=== PATIENT | male | born 1985 | race Caucasian/White ===

== ENCOUNTER → 2021-09-18 | Outpatient (CLI) | payer BC ==
[2021-09-18 08:26] LABS: BASOPHILS % 0.2 % (0.0-1.0); EOSINOPHILS # (AUTO) 0.1 (0.0-0.4); EOSINOPHILS % 1.1 % (0.0-6.0); HEMATOCRIT 45.5 % (38.2-49.6); HEMOGLOBIN 15.4 g/dL (14.0-18.0); LYMPHOCYTES # (AUTO) 1.2 (1.0-3.2); LYMPHOCYTES % 26.6 % (18.0-39.1); MEAN CORPUSCULAR HEMOGLOBIN 30.6 pg (28-32); MEAN CORPUSCULAR HGB CONC 33.8 g/dL (31-35); MEAN CORPUSCULAR VOLUME 90.5 fL (81-99); MONOCYTES # (AUTO) 0.3 (0.2-0.8); MONOCYTES % 6.4 % (4.4-11.3); NEUTROPHILS # (AUTO) 3.1 (2.1-6.9); NEUTROPHILS % 65.5 % (38.7-80.0); PLATELET COUNT 213 x10e3/uL (140-360); RED BLOOD COUNT 5.03 x10e6/uL (4.3-5.7); RED CELL DISTRIBUTION WIDTH 12.9 % (11.7-14.4)
[2021-09-18 08:48] LABS: ALBUMIN 4.3 g/dL (3.5-5.0); ALBUMIN/GLOBULIN RATIO 1.2 (0.8-2.0); ANION GAP 12.4 mmol/L (8-16); CALCIUM 9.8 mg/dL (8.4-10.2); CHOL/HDL RATIO 2.9 (3.9-4.7); CREATININE, SERUM 0.83 mg/dL (0.72-1.25); MAGNESIUM 2.1 MG/DL (1.3-2.1); POTASSIUM 4.4 mmol/L (3.5-5.1)
== END ==
LOC: RAD 07:50
PROVIDERS: ATTEND Family Medicine
DX: R07.9 Chest pain, unspecified (principal)
CPT/HCPCS: 36415; 71046; 80053; 80061; 83735; 85025

== ENCOUNTER 2021-11-25 23:12 | Emergency (ER) | payer OTHER ==
[~2021-11-25] VITALS: Ht 175.3 cm; Wt 79.8 kg
== END 2021-11-26 | disposition home or self-care (01) ==
LOC: ER 23:56
DX: R53.1 Weakness (principal); M79.642 Pain in left hand; M79.641 Pain in right hand; R53.83 Other fatigue
CPT/HCPCS: 99282